=== PATIENT | female | born 1970 | race Two or more races ===

== ENCOUNTER 2019-12-24 14:52 | Emergency (ER) | payer MEDICAID ==
[~2019-12-24] VITALS: Ht 157.5 cm; Wt 82.0 kg
[2019-12-24 16:42] LABS: BILIRUBIN,URINE NEG (NEG); CLARITY,URINE HAZY; COLOR,URINE AMBER; GLUCOSE,URINE NEG (NEG); NITRITE,URINE NEG (NEG); RBC,URINE 0 /HPF (0-2); UROBILINOGEN,URINE 0.2 mg/dL (0.2 mg/dL)
[2019-12-24 16:43] LABS: BACTERIA,URINE FEW /HPF (0-FEW); WBC,URINE 0 /HPF (0-4)
[2019-12-24] MEDS ORDERED: IOHEXOL 300 MG/ML 75 ML VIAL. IV ONE (17:00)
[2019-12-24 17:31] LABS: BASO % 1 % (0-3); EOS # 0.2 x10^3/uL (0.0-0.7); EOS % 3 % (0-3); HEMATOCRIT 39.1 % (36.0-47.0); HEMOGLOBIN 13.1 g/dL (12.0-15.5); LYMPH # 2.1 x10^3/uL (1.0-4.8); LYMPH % 29 % (24-48); MEAN CORPUSCULAR HEMOGLOBIN 28 pg (25-35); MEAN CORPUSCULAR HGB CONC 34 g/dL (31-37); MEAN CORPUSCULAR VOLUME 84 fL (79-100); MONO # 0.4 x10^3/uL (0.0-1.1); MONO % 6 % (0-9); NEUT # 4.5 x10^3uL (1.8-7.7); NEUT % 62 % (31-73); PLATELET COUNT 289 x10^3/uL (140-400); RED BLOOD COUNT 4.68 x10^6/uL (3.50-5.40); RED CELL DISTRIBUTION WIDTH 14.7 % (11.5-14.5); WHITE BLOOD COUNT 7.2 x10^3/uL (4.0-11.0)
[2019-12-24 17:32] LABS: CALCIUM 9.1 mg/dL (8.5-10.1); CREATININE 0.7 mg/dL (0.6-1.0); GFR 89.3; POTASSIUM 3.9 mmol/L (3.5-5.1)
[2019-12-24 17:38] LABS: ALBUMIN 3.4 g/dL (3.4-5.0); ALBUMIN/GLOBULIN RATIO 0.8 (1.0-1.7); TOTAL BILIRUBIN 0.2 mg/dL (0.2-1.0); TOTAL PROTEIN 7.7 g/dL (6.4-8.2)
--- NOTE | 2019-12-24 17:52 | RAD ---
CT abdomen pelvis with contrast dated 12/24/2019. No comparison available. CLINICAL INDICATION: Abdominal pain. TECHNIQUE: Contiguous axial imaging the abdomen pelvis performed after the intravenous and demonstration of 75 cc Omnipaque 300. One or more of the following individualized dose reduction techniques were utilized for this examination: 1. Automated exposure control 2. Adjustment of the mA and/or kV according to patient size 3. Use of iterative reconstruction technique. FINDINGS: Limited images of lung bases are clear. Heart size within normal limits. No pleural or pericardial effusion. Liver is of diffuse low density compatible with fatty infiltration. No apparent mass. Biliary tree normal in caliber. The gallbladder is surgically absent. Spleen is normal in size. Fatty replacement of the pancreas. Adrenal glands and kidneys are unremarkable. No hydronephrosis. Unopacified GI tract normal in caliber. There is a focal zone of wall thickening and pericolonic inflammatory stranding at the descending colon/sigmoid with scattered diverticula in the region. No localized perforation or abscess. The appendix is normal in caliber. There is a prominent supraumbilical ventral hernia that contains portions of large and small bowel. No evidence of bowel obstruction. No adenopathy or ascites. Images of pelvis show nondistended urinary bladder. The uterus is surgically absent. No free fluid or pelvic lymphadenopathy. Bone windows show no acute findings. Multilevel spondylosis. IMPRESSION: 1. Findings consistent with acute sigmoid diverticulitis. No localized perforation or abscess at this time. 2. Prominent supraumbilical ventral hernia containing loops of large and small bowel. No evidence of bowel obstruction. 3. Fatty infiltration of the liver. 4. Status post cholecystectomy and hysterectomy. Electronically signed by: Max Kaiser MD (12/24/2019 5:50 PM) [id number]
[2019-12-24] MEDS ORDERED: CIPROFLOXACIN HCL 500 MG TABLET PO ONE (18:00)
[2019-12-24] MEDS ORDERED: metroNIDAZOLE 500 MG TABLET PO ONE (18:00)
[2019-12-24] MEDS ORDERED: CIPR500T PO (18:02)
[2019-12-24] MEDS ORDERED: METR500T PO (18:02)
--- NOTE | 2019-12-24 18:03 | PHYS DOC ---
Past History Past Medical History: Arthritis Past Surgical History: Cholecystectomy, Hysterectomy, Other Additional Past Surgical Histo: bilat knee surgeries, bunionectomy, multiple hernia repairs. Alcohol Use: None Adult General Chief Complaint Chief Complaint: FLANK PAIN HPI HPI Patient is a 49-year-old female who presents with suprapubic pain and urinary symptoms. Onset was 24 hours ago without any known inciting event and/or trauma. Nothing known makes better or worse. Pain is dull to suprapubic region without radiation with associated dysuria on urination. No lashell hematuria, fever, COVID-19 contact, chest pain or shortness of breath. Patient has history of diverticulitis in the past, admits mild left lower quadrant pain in addition to urinary symptoms. Unsure if this feels like previous episodes Review of Systems Review of Systems Fourteen body systems of review of systems have been reviewed. See HPI for pertinent positives and negative responses, other jones all other systems are negative, non-pertinent or non-contributory Current Medications Current Medications Current Medications Medications (Trade) Dose Ordered Sig/Thea Start Time Stop Time Status Last Admin Dose Admin Iohexol (Omnipaque 300 Mg/ml) 75 ml 1X ONCE 12/24/19 17:00 12/24/19 17:01 DC 12/24/19 17:35 75 ML Allergies Allergies Allergies Coded Allergies Type Severity Reaction Last Updated Verified No Known Drug Allergies 12/24/19 No Physical Exam Physical Exam Constitutional: Well developed, well nourished, no acute distress, non-toxic appearance. HENT: Normocephalic, atraumatic, bilateral external ears normal, oropharynx moist, no oral exudates, nose normal. Eyes: PERRLA, EOMI, conjunctiva normal, no discharge. Neck: Normal range of motion, no tenderness, supple, no stridor. Cardiovascular: Heart rate regular, sinus rhythm, no murmurs rubs or gallops Lungs & Thorax: Bilateral breath sounds clear to auscultation Abdomen: Bowel sounds normal, soft, mild suprapubic tenderness and focal left lower quadrant tenderness without any guarding or rebound, no masses, no pulsatile masses. Nonsurgical abdomen, no peritoneal signs Skin: Warm, dry, no erythema, no rash. Back: No tenderness, no CVA tenderness. Extremities: No tenderness, no cyanosis, no clubbing, ROM intact, no edema. Neurologic: Alert and oriented X 3, grossly normal motor & sensory function, no focal deficits noted. Psychologic: Affect normal, judgement normal, mood normal. Current Patient Data Vital Signs Vital Signs Date Time Temp Pulse Resp B/P (MAP) Pulse Ox O2 Delivery O2 Flow Rate FiO2 12/24/19 15:10 98.1 82 16 150/53 (85) 97 Lab Results Laboratory Tests Test 12/24/19 15:40 12/24/19 17:00 Urine Collection Type Unknown Urine Color Tammy Urine Clarity Hazy Urine pH 6.0 Urine Specific [place] >=1.030 Urine Protein 30 mg/dl (NEG-TRACE) Urine Glucose (UA) Neg mg/dL (NEG) Urine Ketones (Stick) 15 mg/dL (NEG) Urine Blood Neg (NEG) Urine Nitrite Neg (NEG) Urine Bilirubin Neg (NEG) Urine Urobilinogen Dipstick 0.2 mg/dL (0.2 mg/dL) Urine Leukocyte Esterase Neg (NEG) Urine RBC 0 /HPF (0-2) Urine WBC 0 /HPF (0-4) Urine Squamous Epithelial Cells None /LPF Urine Bacteria Few /HPF (0-FEW) White Blood Count 7.2 x10^3/uL (4.0-11.0) Red Blood Count 4.68 x10^6/uL (3.50-5.40) Hemoglobin 13.1 g/dL (12.0-15.5) Hematocrit 39.1 % (36.0-47.0) Mean Corpuscular Volume 84 fL (79-100) Mean Corpuscular Hemoglobin 28 pg (25-35) Mean Corpuscular Hemoglobin Concent 34 g/dL (31-37) Red Cell Distribution Width 14.7 % (11.5-14.5) H Platelet Count 289 x10^3/uL (140-400) Neutrophils (%) (Auto) 62 % (31-73) Lymphocytes (%) (Auto) 29 % (24-48) Monocytes (%) (Auto) 6 % (0-9) Eosinophils (%) (Auto) 3 % (0-3) Basophils (%) (Auto) 1 % (0-3) Neutrophils # (Auto) 4.5 x10^3uL (1.8-7.7) Lymphocytes # (Auto) 2.1 x10^3/uL (1.0-4.8) Monocytes # (Auto) 0.4 x10^3/uL (0.0-1.1) Eosinophils # (Auto) 0.2 x10^3/uL (0.0-0.7) Basophils # (Auto) 0.0 x10^3/uL (0.0-0.2) Sodium Level 141 mmol/L (136-145) Potassium Level 3.9 mmol/L (3.5-5.1) Chloride Level 105 mmol/L (98-107) Carbon Dioxide Level 26 mmol/L (21-32) Anion Gap 10 (6-14) Blood Urea Nitrogen 12 mg/dL (7-20) Creatinine 0.7 mg/dL (0.6-1.0) Estimated GFR (Cockcroft-Gault) 89.3 BUN/Creatinine Ratio 17 (6-20) Glucose Level 147 mg/dL (70-99) H Calcium Level 9.1 mg/dL (8.5-10.1) Total Bilirubin 0.2 mg/dL (0.2-1.0) Aspartate Amino Transferase (AST) 25 U/L (15-37) Alanine Aminotransferase (ALT) 19 U/L (14-59) Alkaline Phosphatase 111 U/L (46-116) Total Protein 7.7 g/dL (6.4-8.2) Albumin 3.4 g/dL (3.4-5.0) Albumin/Globulin Ratio 0.8 (1.0-1.7) L EKG EKG [] Radiology/Procedures Radiology/Procedures PROCEDURE: CT ABD PELV W/ IV CONTRST ONLY CT abdomen pelvis with contrast dated 12/24/2019. No comparison available. CLINICAL INDICATION: Abdominal pain. TECHNIQUE: Contiguous axial imaging the abdomen pelvis performed after the intravenous and demonstration of 75 cc Omnipaque 300. One or more of the following individualized dose reduction techniques were utilized for this examination: 1. Automated exposure control 2. Adjustment of the mA and/or kV according to patient size 3. Use of iterative reconstruction technique. FINDINGS: Limited images of lung bases are clear. Heart size within normal limits. No pleural or pericardial effusion. Liver is of diffuse low density compatible with fatty infiltration. No apparent mass. Biliary tree normal in caliber. The gallbladder is surgically absent. Spleen is normal in size. Fatty replacement of the pancreas. Adrenal glands and kidneys are unremarkable. No hydronephrosis. Unopacified GI tract normal in caliber. There is a focal zone of wall thickening and pericolonic inflammatory stranding at the descending colon/sigmoid with scattered diverticula in the region. No localized perforation or abscess. The appendix is normal in caliber. There is a prominent supraumbilical ventral hernia that contains portions of large and small bowel. No evidence of bowel obstruction. No adenopathy or ascites. Images of pelvis show nondistended urinary bladder. The uterus is surgically absent. No free fluid or pelvic lymphadenopathy. Bone windows show no acute findings. Multilevel spondylosis. IMPRESSION: 1. Findings consistent with acute sigmoid diverticulitis. No localized perforation or abscess at this time. 2. Prominent supraumbilical ventral hernia containing loops of large and small bowel. No evidence of bowel obstruction. 3. Fatty infiltration of the liver. 4. Status post cholecystectomy and hysterectomy. Electronically signed by: Max Kaiser MD (12/24/2019 5:50 PM) [id number] Heart Score HEART Score for Chest Pain: HEART Score for Chest Pain Response (Comments) Value History Slighlty/Non-Suspicious 0 Age >45 - < 65 1 Risk Factors >3 Risk Factors or Hx CAD 2 Total 3 Risk Factors: Risk Factors: DM, Current or recent (<one month) smoker, HTN, HLP, family history of CAD, obesity. Risk Scores: Risk Factors: DM, Current or recent (<one month) smoker, HTN, HLP, family history of CAD, obesity. Course & Med Decision Making Course & Med Decision Making Pertinent Labs and Imaging studies reviewed. (See chart for details) Discussed most likely diagnosis of diverticulitis. Discussed need for antibiotic use and close outpatient follow-up, patient educated extensively on ciprofloxacin and Flagyl medications for which she received a prescription for today. Patient amenable to plan of care Strict return precautions discussed with good understanding by patient, all questions and concerns addressed prior to ER departure in stable condition [place] Disclaimer Dragon Disclaimer This electronic medical record was generated, in whole or in part, using a voice recognition dictation system. Departure Departure: Impression: Primary Impression: Sigmoid diverticulitis Disposition: 01 DC HOME SELF CARE/HOMELESS Condition: STABLE Referrals: ROBLES MAC (PCP) Patient Instructions: Diverticulitis Scripts Metronidazole (FLAGYL) 500 Mg Tablet 500 MG PO TID for DIVERTICULITIS for 10 Days, #30 TAB Prov: JOHN FERGUSON DO 12/24/19 Ciprofloxacin Hcl (CIPROFLOXACIN HCL) 500 Mg Tablet 1 TAB PO BID for DIVERTICULITIS, #20 TAB Prov: JOHN FERGUSON DO 12/24/19 JOHN FERGUSON DO Dec 24, 2019 18:03
[2019-12-24 18:32] VITALS: BP 122/72
== END 2019-12-24 18:32 | disposition home or self-care (01) ==
LOC: ER 14:52
DX: K57.32 Diverticulitis of large intestine without perforation or abscess without bleeding (principal); M19.90 Unspecified osteoarthritis, unspecified site; Z90.49 Acquired absence of other specified parts of digestive tract; Z90.710 Acquired absence of both cervix and uterus
CPT/HCPCS: 36415; 74177; 80053; 81001; 85025; 99285; Q9967

== ENCOUNTER 2020-01-10 16:19 | Emergency (ER) | payer MEDICAID ==
[~2020-01-10] VITALS: Ht 160 cm; Wt 107.3 kg
[~2020-01-10 16:19] MED LIST: CIPR500T PO; METR500T PO
[2020-01-10 17:59] LABS: BILIRUBIN,URINE NEG (NEG); CLARITY,URINE CLEAR; COLOR,URINE YELLOW; GLUCOSE,URINE NEG (NEG)
[2020-01-10 18:00] LABS: BACTERIA,URINE 0 /HPF (0-FEW); NITRITE,URINE NEG (NEG); RBC,URINE RARE /HPF (0-2); SQUAMOUS EPITHELIAL CELL,UR MOD /LPF; UROBILINOGEN,URINE 0.2 mg/dL (0.2 mg/dL); WBC,URINE RARE /HPF (0-4)
[2020-01-10 19:24] LABS: BASO # 0.1 x10^3/uL (0.0-0.2); BASO % 1 % (0-3); EOS # 0.2 x10^3/uL (0.0-0.7); EOS % 2 % (0-3); HEMATOCRIT 39.8 % (36.0-47.0); LYMPH # 2.4 x10^3/uL (1.0-4.8); LYMPH % 23 % (24-48); MEAN CORPUSCULAR HEMOGLOBIN 27 pg (25-35); MEAN CORPUSCULAR HGB CONC 33 g/dL (31-37); MEAN CORPUSCULAR VOLUME 84 fL (79-100); MONO # 0.6 x10^3/uL (0.0-1.1); MONO % 5 % (0-9); NEUT # 7.2 x10^3uL (1.8-7.7); NEUT % 68 % (31-73); PLATELET COUNT 310 x10^3/uL (140-400); RED BLOOD COUNT 4.73 x10^6/uL (3.50-5.40); RED CELL DISTRIBUTION WIDTH 14.7 % (11.5-14.5); WHITE BLOOD COUNT 10.5 x10^3/uL (4.0-11.0)
--- NOTE | 2020-01-10 19:36 | PHYS DOC ---
Past History Past Medical History: Arthritis, Diverticulitis Past Surgical History: Cholecystectomy, Hysterectomy, Other Additional Past Surgical Histo: bilat knee surgeries, bunionectomy, multiple hernia repairs. Alcohol Use: None Adult General Chief Complaint Chief Complaint: ABDOMINAL PAIN [facility] HPI Patient is a 49-year-old female who presents to the emergency room complaining of left flank pain that radiates into her left lower abdomen. She states that i t feels somewhat similar to when she has had diverticulitis. She has had loose stools since that but they have not changed when this pain started. She has had this pain since Thursday night. She denies any urinary symptoms including hematuria, dysuria, urinary frequency. She has not had any fevers, chills, sweats, shortness of breath, cough, URI symptoms, chest pain. Review of Systems Review of Systems Complete ROS is negative unless otherwise documented in [facility] Allergies Allergies Allergies Coded Allergies Type Severity Reaction Last Updated Verified No Known Drug Allergies 12/24/19 No Physical Exam Physical Exam General: Awake, alert, NAD. Well Nourished, well hydrated. Cooperative HEENT: Atraumatic, EOMI, PERRL, airway patent, moist oral mucosa Neck: Supple, trachea midline Respiratory: CTA bilaterally, normal effort, no wheezing/crackles CV: RRR, no murmur, cap refill <2 GI: Soft, nondistended, L sided abd tenderness, no masses MSK: No obvious deformities Skin: Warm, dry, intact Neuro: A&O x3, speech NL, sensory and motor grossly intact, no focal deficits Psych: Normal affect, normal mood, not suicidal or homicidal Current Patient Data Vital Signs Vital Signs Date Time Temp Pulse Resp B/P (MAP) Pulse Ox O2 Delivery O2 Flow Rate FiO2 01/10/20 17:20 97.9 73 20 155/89 (111) 97 Room Air Lab Results Laboratory Tests Test 01/10/20 17:28 01/10/20 18:50 Urine Collection Type Unknown Urine Color Yellow Urine Clarity Clear Urine pH 7.0 Urine Specific [place] >=1.030 Urine Protein Neg (NEG-TRACE) Urine Glucose (UA) Neg mg/dL (NEG) Urine Ketones (Stick) Neg mg/dL (NEG) Urine Blood Neg (NEG) Urine Nitrite Neg (NEG) Urine Bilirubin Neg (NEG) Urine Urobilinogen Dipstick 0.2 mg/dL (0.2 mg/dL) Urine Leukocyte Esterase Neg (NEG) Urine RBC Rare /HPF (0-2) Urine WBC Rare /HPF (0-4) Urine Squamous Epithelial Cells Mod /LPF Urine Bacteria 0 /HPF (0-FEW) Urine Test Pending White Blood Count 10.5 x10^3/uL (4.0-11.0) Red Blood Count 4.73 x10^6/uL (3.50-5.40) Hemoglobin 13.0 g/dL (12.0-15.5) Hematocrit 39.8 % (36.0-47.0) Mean Corpuscular Volume 84 fL (79-100) Mean Corpuscular Hemoglobin 27 pg (25-35) Mean Corpuscular Hemoglobin Concent 33 g/dL (31-37) Red Cell Distribution Width 14.7 % (11.5-14.5) H Platelet Count 310 x10^3/uL (140-400) Neutrophils (%) (Auto) 68 % (31-73) Lymphocytes (%) (Auto) 23 % (24-48) L Monocytes (%) (Auto) 5 % (0-9) Eosinophils (%) (Auto) 2 % (0-3) Basophils (%) (Auto) 1 % (0-3) Neutrophils # (Auto) 7.2 x10^3uL (1.8-7.7) Lymphocytes # (Auto) 2.4 x10^3/uL (1.0-4.8) Monocytes # (Auto) 0.6 x10^3/uL (0.0-1.1) Eosinophils # (Auto) 0.2 x10^3/uL (0.0-0.7) Basophils # (Auto) 0.1 x10^3/uL (0.0-0.2) EKG EKG [] Radiology/Procedures Radiology/Procedures [] Heart Score Risk Factors: Risk Factors: DM, Current or recent (<one month) smoker, HTN, HLP, family history of CAD, obesity. Risk Scores: Risk Factors: DM, Current or recent (<one month) smoker, HTN, HLP, family history of CAD, obesity. Course & Med Decision Making Course & Med Decision Making Pertinent Labs and Imaging studies reviewed. (See chart for details) Patient is a 49-year-old female presents to the emergency room complaining of left-sided abdominal and flank pain. Abdominal labs and urinary labs were ordered. CT abdomen pelvis without contrast was ordered to evaluate for diverticulitis or kidney stone. Patient was given morphine and fluids. CT shows diverticulitis. Will start on Augmentin. Patient's test results and vitals while in the ED were fully reviewed and discussed with the patient. Patient is stable and at this time does not need admission to the hospital. We have discussed strict return precautions and the importance of following up with their Primary Care Physician. Patient stated understanding and was given an opportunity to ask any questions. Patient is in agreement with plan. Dragon Disclaimer Dragon Disclaimer This electronic medical record was generated, in whole or in part, using a voice recognition dictation system. Departure Departure: Impression: Primary Impression: Abdominal pain Additional Impression: Diverticulitis Disposition: 01 DC HOME SELF CARE/HOMELESS Condition: STABLE Referrals: ROLBES MAC (PCP) Patient Instructions: Diverticulitis Scripts Oxycodone Hcl/Acetaminophen (PERCOCET 5-325 MG TABLET ) 1 Each Tablet 1 TAB PO PRN TID PRN for PAIN MDD 3 Tablet(s) for 5 Days, #6 TAB 0 Refills Prov: GILDARDO MEDRANO MD 01/10/20 Amoxicillin/Potassium Clav (AUGMENTIN 875-125 TABLET) 1 Each Tablet 1 TAB PO BID for infx for 10 Days, #20 TAB 0 Refills Prov: GILDARDO MEDRANO MD 01/10/20 Problem Qualifiers GILDARDO MEDRANO MD Jan 10, 2020 19:36
[2020-01-10 19:45] LABS: CREATININE 0.7 mg/dL (0.6-1.0); GFR 89.3
[2020-01-10 19:46] LABS: U PREG PATIENT NEGATIVE (NEG)
--- NOTE | 2020-01-10 20:07 | RAD ---
Exam: CT of abdomen and pelvis without contrast INDICATION: Left flank pain TECHNIQUE: Sequential axial images through the abdomen and pelvis obtained without IV contrast. Sagittal and coronal reformatted images were reconstructed from the axial data and reviewed. Comparisons: 12/24/2019 FINDINGS: Heart size is normal. No pericardial effusion visualized lung bases are clear. Evaluation of solid organs is limited secondary to noncontrast technique. Diffuse hepatic steatosis. Spleen, pancreas and adrenals are unremarkable. Gallbladder surgically absent. No perinephric inflammation or hydronephrosis. No renal or ureteral calculi are identified. Bladder is distended and not well evaluated. Uterus is absent. No abnormal adnexal mass. There is wall thickening and fat stranding surrounding the sigmoid colon.. No evidence for perforation or adjacent abscess. There is a ventral hernia which contains a short segment of transverse colon with several loops of small bowel. No obstruction. No free intra-abdominal air or fluid. Abdominal aorta has a normal course and caliber. No enlarged intra-abdominal lymph nodes are identified. No suspicious osseous lesions or acute fractures. IMPRESSION: 1. Fat stranding at the sigmoid colon favored represent colitis. May be infectious or inflammatory in etiology. This is an area of diverticulosis and diverticulitis possible. No evidence for perforation or adjacent abscess. 2. Diffuse hepatic steatosis Exposure: One or more of the following in the visualized dose reduction techniques were utilized for this examination: 1. Automated exposure control 2. Adjustment of the MA and/or KV according to patient size 3. Use of iterative of reconstructive technique Electronically signed by: Kami Hutchinson MD (01/10/2020 8:05 PM) [facility]
[2020-01-10 20:21] VITALS: BP 152/86
[2020-01-10] MEDS ORDERED: OXYC1TAB15 PO (20:29)
[2020-01-10] MEDS ORDERED: AMOX1TAB61 PO (20:29)
[2020-01-10] MEDS ORDERED: MORPHINE SULFATE 4 MG/ML DISP.SYRIN. IV ONE (20:45)
== END 2020-01-10 20:44 | disposition home or self-care (01) ==
LOC: ER 16:19
DX: K57.92 Diverticulitis of intestine, part unspecified, without perforation or abscess without bleeding (principal); M19.90 Unspecified osteoarthritis, unspecified site; Z90.49 Acquired absence of other specified parts of digestive tract; Z90.710 Acquired absence of both cervix and uterus
CPT/HCPCS: 36415; 74176; 80048; 81001; 81025; 85025; 99285

== ENCOUNTER 2020-01-23 01:36 | Emergency (ER) | payer MEDICAID ==
[~2020-01-23] VITALS: Ht 160 cm; Wt 105.0 kg
[~2020-01-23 01:36] MED LIST changes: +AMOX1TAB61 PO; +OXYC1TAB15 PO
--- NOTE | 2020-01-23 02:08 | PHYS DOC ---
Past History Past Medical History: Arthritis, Diverticulitis Past Surgical History: Cholecystectomy, Hysterectomy, Other Additional Past Surgical Histo: bilat knee surgeries, bunionectomy, multiple hernia repairs. Alcohol Use: None Adult General Chief Complaint Chief Complaint: ABDOMINAL PAIN [facility] HPI Patient is a 49-year-old female who presents for abdominal pain and hematochezia. Reports having 24-hour history of vague abdominal pain focal to suprapubic and bilateral lower quadrants. Subsequently had x2 episodes of painless hematochezia within past 4 hours prior to arrival. Patient documented these episodes, there was lashell red blood in stool that was bright red in addition to streaking in stool and on toilet paper. Patient otherwise denies any changes in stool production and/or frequency, no history of constipation, typically goes twice daily and reports being regular and passing flatulence without issue. Patient admits history of colonoscopy that was unremarkable, has prior history of diverticulosis. Patient reports similar episode of hematochezia during last bout of diverticulitis less than 4 weeks ago for which she took and completed round of Augmentin. She has no history of abdominal surgeries, no fever, no COVID-19 contact Review of Systems Review of Systems Fourteen body systems of review of systems have been reviewed. See HPI for pertinent positives and negative responses, other jones all other systems are negative, non-pertinent or non-contributory Allergies Allergies Allergies Coded Allergies Type Severity Reaction Last Updated Verified No Known Drug Allergies 12/24/19 No Physical Exam Physical Exam Constitutional: Well developed, well nourished, no acute distress, non-toxic appearance. HENT: Normocephalic, atraumatic, bilateral external ears normal, oropharynx moist, no oral exudates, nose normal. Eyes: PERRLA, EOMI, conjunctiva normal, no discharge. Neck: Normal range of motion, no tenderness, supple, no stridor. Cardiovascular: Heart rate regular, sinus rhythm, no murmurs rubs or gallops Lungs & Thorax: Bilateral breath sounds clear to auscultation Abdomen: Bowel sounds normal, soft, mild suprapubic tenderness without guarding or rebound, no masses, no pulsatile masses. Nonsurgical abdomen, no peritoneal signs. Rectal exam performed with numerous external hemorrhoids that were nonthrombosed and nonbleeding readily apparent, anal sphincter intact, no obvious palpable abnormalities within rectal vault Skin: Warm, dry, no erythema, no rash. Back: No tenderness, no CVA tenderness. Extremities: No tenderness, no cyanosis, no clubbing, ROM intact, no edema. Neurologic: Alert and oriented X 3, grossly normal motor & sensory function, no focal deficits noted. Psychologic: Affect normal, judgement normal, mood normal. Current Patient Data Vital Signs Vital Signs Date Time Temp Pulse Resp B/P (MAP) Pulse Ox O2 Delivery O2 Flow Rate FiO2 01/23/20 02:24 78 20 138/82 (100) 98 Room Air 01/23/20 01:36 98.6 Lab Results Laboratory Tests Test 01/23/20 01:35 01/23/20 01:50 Urine Collection Type Unknown Urine Color Yellow Urine Clarity Hazy Urine pH 6.5 Urine Specific [place] 1.025 Urine Protein Trace (NEG-TRACE) Urine Glucose (UA) Neg mg/dL (NEG) Urine Ketones (Stick) Trace mg/dL (NEG) Urine Blood Trace (NEG) Urine Nitrite Neg (NEG) Urine Bilirubin Neg (NEG) Urine Urobilinogen Dipstick 1.0 mg/dL (0.2 mg/dL) Urine Leukocyte Esterase Small (NEG) Urine RBC 0 /HPF (0-2) Urine WBC 5-10 /HPF (0-4) Urine Squamous Epithelial Cells Mod /LPF Urine Bacteria Few /HPF (0-FEW) Urine Test Negative (NEG) White Blood Count 7.3 x10^3/uL (4.0-11.0) Red Blood Count 4.57 x10^6/uL (3.50-5.40) Hemoglobin 12.5 g/dL (12.0-15.5) Hematocrit 38.2 % (36.0-47.0) Mean Corpuscular Volume 84 fL (79-100) Mean Corpuscular Hemoglobin 27 pg (25-35) Mean Corpuscular Hemoglobin Concent 33 g/dL (31-37) Red Cell Distribution Width 14.4 % (11.5-14.5) Platelet Count 274 x10^3/uL (140-400) Neutrophils (%) (Auto) 53 % (31-73) Lymphocytes (%) (Auto) 36 % (24-48) Monocytes (%) (Auto) 8 % (0-9) Eosinophils (%) (Auto) 3 % (0-3) Basophils (%) (Auto) 1 % (0-3) Neutrophils # (Auto) 3.8 x10^3uL (1.8-7.7) Lymphocytes # (Auto) 2.6 x10^3/uL (1.0-4.8) Monocytes # (Auto) 0.6 x10^3/uL (0.0-1.1) Eosinophils # (Auto) 0.2 x10^3/uL (0.0-0.7) Basophils # (Auto) 0.1 x10^3/uL (0.0-0.2) Prothrombin Time 9.9 SEC (9.4-11.4) Prothromb Time International Ratio 1.0 (0.9-1.1) Activated Partial Thromboplast Time 26 SEC (23-33) Sodium Level 137 mmol/L (136-145) Potassium Level 3.5 mmol/L (3.5-5.1) Chloride Level 102 mmol/L (98-107) Carbon Dioxide Level 26 mmol/L (21-32) Anion Gap 9 (6-14) Blood Urea Nitrogen 11 mg/dL (7-20) Creatinine 0.8 mg/dL (0.6-1.0) Estimated GFR (Cockcroft-Gault) 76.6 BUN/Creatinine Ratio 14 (6-20) Glucose Level 138 mg/dL (70-99) Calcium Level 8.5 mg/dL (8.5-10.1) Total Bilirubin 0.4 mg/dL (0.2-1.0) Aspartate Amino Transf (AST/SGOT) 19 U/L (15-37) Alanine Aminotransferase (ALT/SGPT) 16 U/L (14-59) Alkaline Phosphatase 104 U/L (46-116) Total Protein 7.2 g/dL (6.4-8.2) Albumin 3.3 g/dL (3.4-5.0) Albumin/Globulin Ratio 0.8 (1.0-1.7) EKG EKG EKG ordered and interpreted by myself at 0215 hrs. as sinus rhythm at 73 bpm, unremarkable intervals, no axis deviation, no acute ischemic findings, no STEMI Radiology/Procedures Radiology/Procedures PROCEDURE: CT ABD PELV W/ IV CONTRST ONLY EXAMINATION: CT ABD PELV W/ IV CONTRST ONLY (CT ABDOMEN/PELVIS WITH IV CONTRAST) CLINICAL HISTORY: Left lower quadrant pain, hematochezia TECHNIQUE: CT of the abdomen and pelvis was performed using standard technique, scanning from just above the dome of the diaphragm to the symphysis pubis following administration of intravenous contrast. CT Dose Reduction Employed: One or more of the following individualized dose reduction techniques were utilized for this examination: 1. Automated exposure control 2. Adjustment of the mA and/or kV according to patient size 3. Use of iterative reconstruction technique. COMPARISON: 01/10/2020 FINDINGS: Lower thorax: Unremarkable. Liver: Hepatic steatosis. Biliary: No bile duct dilation. Cholecystectomy. Spleen: No mass. No splenomegaly. Pancreas: No mass or duct dilation. Adrenals: No mass. Kidneys: No mass, calculus or hydronephrosis. GI tract: Colonic diverticulosis with redemonstration of sigmoid wall thickening and pericolonic inflammatory stranding/fluid, essentially unchanged from prior study. No dilated bowel. Normal appendix. Lymph nodes: No abdominal or pelvic lymphadenopathy. Mesentery/Peritoneum: No ascites or mass. Vasculature: The celiac axis and SMA are patent. The portal vein and branches, splenic vein, SMV, and hepatic veins are patent. No abdominal aortic or iliac artery aneurysm. Pelvis: Mildly filled urinary bladder. Bones/Soft Tissues: Thoracolumbar degenerative changes. Stable ventral hernia containing a portion of the transverse colon and several loops of nonobstructed small bowel. IMPRESSION: Essentially unchanged sigmoid diverticulitis/colitis. Electronically signed by: Naif Monson DO (01/23/2020 5:37 AM) [facility] Heart Score HEART Score for Chest Pain: HEART Score for Chest Pain Response (Comments) Value History Slighlty/Non-Suspicious 0 ECG Normal 0 Age >45 - < 65 1 Risk Factors 1 or 2 Risk Factors 1 Total 2 Risk Factors: Risk Factors: DM, Current or recent (<one month) smoker, HTN, HLP, family history of CAD, obesity. Risk Scores: Risk Factors: DM, Current or recent (<one month) smoker, HTN, HLP, family history of CAD, obesity. Course & Med Decision Making Course & Med Decision Making Pertinent Labs and Imaging studies reviewed. (See chart for details) Discussed most likely diagnosis of hematochezia likely due to diverticulosis versus hemorrhoids versus other. Extensive ER work-up nonconcerning for any emergent and/or surgical findings, Sammy-Blatchford bleeding score 0. Patient afebrile, hemodynamically stable, asymptomatic, but does have ongoing evidence of diverticulitis requiring antibiotics. Patient took Cipro and Flagyl while in ER and tolerated these well, she was observed and ultimately joint decision made for discharge home. She has good access to PCP, I advised patient to call first thing on discharge schedule outpatient follow-up in upcoming week for repeat examination. 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 Strict return precautions were discussed with good understanding by patient, all questions and concerns addressed prior to ER departure in stable condition Dragon Disclaimer Dragon Disclaimer This electronic medical record was generated, in whole or in part, using a voice recognition dictation system. Departure Departure: Impression: Primary Impression: Diverticulitis Additional Impressions: Hematochezia External hemorrhoids Disposition: DC HOME SELF CARE/HOMELESS Condition: STABLE Referrals: ROBLES MAC (PCP) Patient Instructions: Diverticulitis, Hemorrhoids, Rectal Bleeding Additional Instructions: You have been evaluated in the Emergency Department today for hematochezia. Your evaluation was not suggestive of any emergent condition requiring medical intervention at this time. However, some problems make take more time to appear. Therefore, it is important for you to watch for any new symptoms or worsening of your current condition. Please continue supportive care for your external hemorrhoids. Please take prescribed antibiotics to completion for your diverticulitis. Please monitor your rectal bleeding and if symptoms progress/worsen please do not hesitate to come back if you are feeling symptomatic for intervention You are pending outpatient GI referral at this time, I would advise discussing y our recent ER visit today with your primary care physician after ER departure in efforts to accelerate referral process. You will likely need repeat colonoscopy after current infectious process has resolved Return to the Emergency Department if you experience worsening pain, lightheadedness or dizziness, falls, persistent fevers greater than 100.4, recurrent vomiting, blood in vomit, continuous blood in stool, dark tarry stool, chest pain, difficulty breathing, or any other concerning symptoms. Scripts Ciprofloxacin Hcl (CIPROFLOXACIN HCL) 500 Mg Tablet 1 TAB PO BID for DIVERTICULITIS, #14 TAB Prov: JOHN FERGUSON DO 01/23/20 Metronidazole (FLAGYL) 500 Mg Tablet 1 TAB PO BID for DIVERTICULITIS, #14 TAB Prov: JOHN FERGUSON DO 01/23/20 Problem Qualifiers JOHN FERGUSON DO Jan 23, 2020 02:08
[2020-01-23 02:26] LABS: BASO # 0.1 x10^3/uL (0.0-0.2); BASO % 1 % (0-3); EOS # 0.2 x10^3/uL (0.0-0.7); EOS % 3 % (0-3); HEMATOCRIT 38.2 % (36.0-47.0); HEMOGLOBIN 12.5 g/dL (12.0-15.5); LYMPH # 2.6 x10^3/uL (1.0-4.8); LYMPH % 36 % (24-48); MEAN CORPUSCULAR HEMOGLOBIN 27 pg (25-35); MEAN CORPUSCULAR HGB CONC 33 g/dL (31-37); MEAN CORPUSCULAR VOLUME 84 fL (79-100); MONO # 0.6 x10^3/uL (0.0-1.1); MONO % 8 % (0-9); NEUT # 3.8 x10^3uL (1.8-7.7); NEUT % 53 % (31-73); PLATELET COUNT 274 x10^3/uL (140-400); RED BLOOD COUNT 4.57 x10^6/uL (3.50-5.40); RED CELL DISTRIBUTION WIDTH 14.4 % (11.5-14.5); WHITE BLOOD COUNT 7.3 x10^3/uL (4.0-11.0)
[2020-01-23] MEDS ORDERED: PANTOPRAZOLE IV 40 MG VIAL. IVP ONE (02:30)
[2020-01-23] MEDS ORDERED: CONTRAST GIVEN. MC PRN (02:30)
[2020-01-23 02:42] LABS: CALCIUM 8.5 mg/dL (8.5-10.1); CREATININE 0.8 mg/dL (0.6-1.0); GFR 76.6; POTASSIUM 3.5 mmol/L (3.5-5.1)
[2020-01-23 02:45] LABS: BACTERIA,URINE FEW /HPF (0-FEW); BILIRUBIN,URINE NEG (NEG); CLARITY,URINE HAZY; COLOR,URINE YELLOW; GLUCOSE,URINE NEG (NEG); NITRITE,URINE NEG (NEG); RBC,URINE 0 /HPF (0-2); SQUAMOUS EPITHELIAL CELL,UR MOD /LPF
[2020-01-23 02:48] LABS: ALBUMIN 3.3 g/dL (3.4-5.0); ALBUMIN/GLOBULIN RATIO 0.8 (1.0-1.7); TOTAL BILIRUBIN 0.4 mg/dL (0.2-1.0); TOTAL PROTEIN 7.2 g/dL (6.4-8.2)
[2020-01-23] MEDS ORDERED: IOHEXOL 300 MG/ML 75 ML VIAL. IV ONE (03:00)
[2020-01-23 03:32] LABS: U PREG PATIENT NEGATIVE (NEG)
--- NOTE | 2020-01-23 05:38 | EKG ---
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
--- NOTE | 2020-01-23 05:40 | RAD ---
EXAMINATION: CT ABD PELV W/ IV CONTRST ONLY (CT ABDOMEN/PELVIS WITH IV CONTRAST) CLINICAL HISTORY: Left lower quadrant pain, hematochezia TECHNIQUE: CT of the abdomen and pelvis was performed using standard technique, scanning from just above the dome of the diaphragm to the symphysis pubis following administration of intravenous contrast. CT Dose Reduction Employed: One or more of the following individualized dose reduction techniques were utilized for this examination: 1. Automated exposure control 2. Adjustment of the mA and/or kV according to patient size 3. Use of iterative reconstruction technique. COMPARISON: 01/10/2020 FINDINGS: Lower thorax: Unremarkable. Liver: Hepatic steatosis. Biliary: No bile duct dilation. Cholecystectomy. Spleen: No mass. No splenomegaly. Pancreas: No mass or duct dilation. Adrenals: No mass. Kidneys: No mass, calculus or hydronephrosis. GI tract: Colonic diverticulosis with redemonstration of sigmoid wall thickening and pericolonic inflammatory stranding/fluid, essentially unchanged from prior study. No dilated bowel. Normal appendix. Lymph nodes: No abdominal or pelvic lymphadenopathy. Mesentery/Peritoneum: No ascites or mass. Vasculature: The celiac axis and SMA are patent. The portal vein and branches, splenic vein, SMV, and hepatic veins are patent. No abdominal aortic or iliac artery aneurysm. Pelvis: Mildly filled urinary bladder. Bones/Soft Tissues: Thoracolumbar degenerative changes. Stable ventral hernia containing a portion of the transverse colon and several loops of nonobstructed small bowel. IMPRESSION: Essentially unchanged sigmoid diverticulitis/colitis. Electronically signed by: Naif Monson DO (01/23/2020 5:37 AM) [facility]
[2020-01-23] MEDS ORDERED: METR500T PO (05:50)
[2020-01-23] MEDS ORDERED: CIPR500T PO (05:50)
[2020-01-23 06:00] VITALS: BP 137/85
[2020-01-23] MEDS ORDERED: CIPROFLOXACIN HCL 500 MG TABLET PO ONE (06:00)
[2020-01-23] MEDS ORDERED: metroNIDAZOLE 500 MG TABLET PO ONE (06:00)
== END 2020-01-23 06:00 | disposition home or self-care (01) ==
LOC: ER 01:36
DX: K57.92 Diverticulitis of intestine, part unspecified, without perforation or abscess without bleeding (principal); K92.1 Melena; K64.4 Residual hemorrhoidal skin tags; M19.90 Unspecified osteoarthritis, unspecified site
CPT/HCPCS: 36415; 74177; 80053; 81001; 81025; 85025; 85610; 85730; 87086; 93005; 96374; 99285; C9113; Q9967

== ENCOUNTER → 2020-05-07 | Outpatient (CLI) | payer MEDICAID ==
[~2020-05-07] MED LIST changes: -CIPR500T PO; +CIPR500T2 PO
--- NOTE | 2020-05-07 13:34 | RAD ---
EXAM: Left knee, 3 views. HISTORY: Pain. COMPARISON: None. FINDINGS: 3 views of the left knee are obtained. There is mild medial compartment joint space narrowi ng and spurring. There is no fracture, dislocation or subluxation. There is trace joint fluid without a significant effusion. IMPRESSION: Mild medial compartment predominant osteoarthritis of the left knee. Electronically signed by: Lucy Orona MD (05/07/2020 1:31 PM) [id number]
--- NOTE | 2020-05-07 13:35 | RAD ---
EXAM: Lumbar spine, 5 views. HISTORY: Pain. COMPARISON: None. FINDINGS: 5 views of the lumbar spine are obtained. There is minimal lumbar dextrocurvature centered at L3. There is mild lumbar hyperlordosis. There is minimal grade 1 anterolisthesis of L4 on L5, jayant uring 3 mm. There is degenerative endplate remodeling with disc space narrowing and vacuum phenomenon at L5-S1. There is facet arthropathy predominantly at the lower lumbar levels. There is degenerative subchondral sclerosis and vacuum phenomenon involving the sacroiliac joints. There are incidental ch olecystectomy clips. IMPRESSION: 1. Degenerative change primarily at L5-S1. 2. Grade 1 anterolisthesis of L4 on L5. Electronically signed by: Lucy Orona MD (05/07/2020 1:32 PM) [id number]
== END ==
LOC: PMG 12:57
PROVIDERS: ATTEND Physician Assistant Medical
DX: M17.12 Unilateral primary osteoarthritis, left knee (principal); M47.26 Other spondylosis with radiculopathy, lumbar region; M47.818 Spondylosis without myelopathy or radiculopathy, sacral and sacrococcygeal region
CPT/HCPCS: 72110; 73562

== ENCOUNTER 2020-09-08 22:25 | Emergency (ER) | payer MEDICAID ==
[~2020-09-08] VITALS: Ht 157.5 cm; Wt 97.1 kg
--- NOTE | 2020-09-08 23:13 | PHYS DOC ---
Past History Past Medical History: Arthritis, Diverticulitis Past Surgical History: Cholecystectomy, Hysterectomy, Other Additional Past Surgical Histo: bilat knee surgeries, bunionectomy, multiple hernia repairs. Alcohol Use: None General Adult EDM: Chief Complaint: ABDOMINAL PAIN HPI: HPI: "... It feels like my diverticulitis.. it been going on for a while... it just gotten worse he last couple days.. Patient is a 49 year old female who presents with above hx and complaints of Lt. lower quadrant pain x 2 day.s Pt. has hx of diverticulitis. Recent attempt at a colonoscopy was unsuccessful because scope could not be passed. Patient has been told she probably needs surgical removal of chronic areas of diverticulitis. Patient does report that stools recently have been somewhat pencil diameter. Patient has complained of some generalized constipation recently. Patient has complaints of some subjective fever and chills. Has had some epigastric discomfort. Patient advising she cannot be admitted tonight because her children are 4 and 7 she has no one to watch them. Patient recently moved here from [place] approximately 1 year ago. Patient denies any history immunosuppression. Denies any recent travel. Patient denies any changes in home meds. Patient normally follows with Laura for care. Review of Systems: Review of Systems: Constitutional: Denies fever or chills Eyes: Denies change in visual acuity HENT: Denies nasal congestion or sore throat Respiratory: Denies cough or shortness of breath Cardiovascular: Denies chest pain or edema GI: Complains of generalized abdominal pain, nausea,. Denies vomiting, bloody stools or diarrhea. Complains of constipation. : Denies dysuria Musculoskeletal: Denies back pain or joint pain Integument: Denies rash Neurologic: Denies headache, focal weakness or sensory changes Endocrine: Denies polyuria or polydipsia Lymphatic: Denies swollen glands Psychiatric: Denies depression or anxiety Family History: Family History: Noncontributory to presentation Current Medications: Current Meds: See nursing for home meds Allergies: Allergies: Allergies Coded Allergies Type Severity Reaction Last Updated Verified No Known Drug Allergies 09/08/20 No Physical Exam: PE: Constitutional: Moderate acute distress, non-toxic appearance. [] HENT: Normocephalic, atraumatic, bilateral external ears normal, oropharynx moist, no oral exudates, nose normal. [] Eyes: PERRLA, EOMI, conjunctiva normal, no discharge. [] Neck: Normal range of motion, no tenderness, supple, no stridor. [] Cardiovascular:Heart rate regular rhythm, no murmur [] Lungs & Thorax: Bilateral breath sounds to apex on auscultation [] Abdomen: Bowel sounds hyperactive,, soft, generalized tenderness, no masses, no pulsatile masses. Rebound to left lower quadrant. Skin: Warm, dry, no erythema, no rash. [] Back: No tenderness, no CVA tenderness. [] Extremities: No tenderness, no cyanosis, no clubbing, ROM intact, no edema. Mild psoas on the left Neurologic: Alert and oriented X 3, normal motor function, normal sensory function, no focal deficits noted. [] Psychologic: Affect anxious, judgement normal, mood normal. [] EKG: EKG: [] Radiology/Procedures: Radiology/Procedures: [][place] [address] IMAGING REPORT Signed PATIENT: CAROLIN FARFAN ACCOUNT: [id number] : 1970 LOCATION: ER AGE: 49 SEX: F EXAM STATUS: REG ER ORD. PHYSICIAN: DEEPIKA LIU MD REASON: pain Lt. hx of diverticultiis, OMNI 300, 75ml & OMNI 240, 30ml PROCEDURE: CT ABD PELV W/ORAL&IV CONTRAST INDICATION: Reason: pain Lt. hx of diverticultiis, OMNI 300, 75ml OMNI 240, 30ml / Spl. Instructions: / History: . COMPARISON: January 23, 2020 TECHNIQUE: Axial CT images obtained through the abdomen and pelvis with contrast. One or more of the following individualized dose reduction techniques were utilized for this examination: 1. Automated exposure control; 2. Adjustment of the mA and/or kV according to patient size; 3. Use of iterative reconstruction technique. FINDINGS: Abdominal aorta is not aneurysmal. Liver is low density which can be seen with fatty infiltration. Postcholecystectomy. No peripancreatic fluid collection. Suspected small diverticulum at duodenum. Spleen unremarkable. Urinary bladder is partially distended with some thickening of the left lateral wall. Mild prominence of the right renal pelvis without radiopaque obstructive ureter stone. Wall thickening of the sigmoid colon with adjacent edema to the fat and small adjacent fluid in a similar location compared to prior exam. Anterior abdominal wall hernia sac is seen with multiple loops of bowel within without evidence of obstruction. No periappendiceal inflammatory changes. Degenerative changes the spine. IMPRESSION: * Severe wall thickening of the sigmoid colon and distal descending colon with adjacent edema to the fat. There is also some adjacent extraluminal air and fluid which could be secondary to localized perforation adjacent to the colon with phlegmon in region. One of these tracts extends towards the left side of the urinary bladder with some wall thickening of the left side of the urinary bladder which may be secondarily inflamed by this process with fistulous tract possible. Follow-up could be obtained to ensure this appropriately resolves to exclude a colonic mass contributing to this appearance given the persistence. Report called to the ER at 2:10 AM on date of exam * Liver is low density which can be seen with fatty infiltration Electronically signed by: Conner Kimball MD (09/09/2020 2:12 AM) [id number] DICTATED AND SIGNED BY: CONNER KIMBALL MD DATE: 09/09/20 020 CC: DEEPIKA LIU MD; ROBL[facility] ~[facility] [address] [place] [address] IMAGING REPORT Signed PATIENT: CAROLIN FARFAN ACCOUNT: [id number] : 1970 LOCATION: ER AGE: 49 SEX: F EXAM STATUS: REG ER ORD. PHYSICIAN: DEEPIKA LIU MD REASON: severe lt. lower abd. pain - hx diverticulitis PROCEDURE: ACUTE ABDOMEN SERIES INDICATION: Reason: severe lt. lower abd. pain - hx diverticulitis / Spl. Instructions: / History: COMPARISON: CT from January 2020 IMPRESSION: 3 views of the chest and abdomen obtained. Degenerative changes the spine. Cardiac silhouette unremarkable. No focal airspace consolidation to suggest pneumonia. Cholecystectomy clips. Moderate stool in the colon with air scattered throughout the large and small bowel in a nonspecific but not grossly obstructive pattern. Electronically signed by: Conner Kimball MD (09/09/2020 12:58 AM) DESKTOP- [id number] DICTATED AND SIGNED BY: CONNER KIMBALL MD DATE: 09/09/2056 CC: DEEPIKA LIU MD; ROBLES MAC ~[facility] 0 Heart Score: C/O Chest Pain: N/A HEART Score for Chest Pain: HEART Score for Chest Pain Response (Comments) Value History Slighlty/Non-Suspicious 0 ECG Normal 0 Age >45 - < 65 1 Troponin < Normal Limit 0 Total 1 Risk Factors: Risk Factors: DM, Current or recent (<one month) smoker, HTN, HLP, family history of CAD, obesity. Risk Scores: Score 0 - 3: 2.5% MACE over next 6 weeks - Discharge Home Score 4 - 6: 20.3% MACE over next 6 weeks - Admit for Clinical Observation Score 7 - 10: 72.7% MACE over next 6 weeks - Early Invasive Strategies Course & Med Decision Making: Course & Med Decision Making Pertinent Labs and Imaging studies reviewed. (See chart for details) Patient stay on a clear fluid diet only for the next 2 days. No solids no milk products. Encourage patient to return if she has any problems. Strongly recommended patient be admitted for surgical consult on her markedly abnormal CT findings. Suspect may be due to chronic diverticulitis however with persistence of left lower quadrant problems may have mass causing the left lower quadrant pain. Patient currently refusing admission. Will start on Cipro 500 mg twice a day. Flagyl 500 mg 3 times a day. Push fluids. Stay on a clear fluid diet for the next couple days. Attempt to find someone to help with babysitting her children during admission. Patient does states she has a daughter coming to into town on Thursday and she will be able to take care of her children at that time but at this time refuses admission under any circumst ances. \\ Impression: 1. Abdomen pain 2. Diverticulitis 3.. Possible UTI however suspect this is secondary to the inflammation in her pelvic area and sigmoid 4. Constipation 5. Possible colonic mass [] Dragon Disclaimer: Dragon Disclaimer: This electronic medical record was generated, in whole or in part, using a voice recognition dictation system. Departure Departure: Referrals: ROBLES MAC (PCP) Scripts Ciprofloxacin (CIPRO) 500 Mg/5 Ml [facility]..rec 500 MG PO BID for diverticultis for 10 Days, MISC Prov: DEEPIKA LIU MD 09/09/20 Metronidazole (FLAGYL) 500 Mg Tablet 500 MG PO TID for diverticular abscess for 10 Days, #30 TAB Prov: DEEPIKA LIU MD 09/09/20 Dragon Disclaimer This chart was dictated in whole or in part using Voice Recognition software in a busy, high-work load, and often noisy Emergency Department environment. It may contain unintended and wholly unrecognized errors or omissions. DEEPIKA LIU MD Sep 08, 2020 23:13
[2020-09-08] MEDS ORDERED: KETOROLAC 30 MG/ML VIAL. IVP ONE (23:15)
[2020-09-08] MEDS ORDERED: ONDANSETRON PF 4 MG/2 ML VIAL. IVP ONE (23:15)
[2020-09-08] MEDS ORDERED: FAMOTIDINE 20 MG/2 ML VIAL IVP ONE (23:15)
[2020-09-08] MEDS ORDERED: CIPROFLOXACIN HCL 500 MG TABLET PO ONE (23:15)
[2020-09-08] MEDS ORDERED: MORPHINE SULFATE 10 MG/ML SYRINGE. SQ ONE (23:15)
[2020-09-08] MEDS ORDERED: IV RINGERS SOLUTION,LACTATED 1,000 ML IV SCH (23:15)
--- NOTE | 2020-09-08 23:44 | EKG ---
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
[2020-09-08] MEDS ORDERED: CONTRAST GIVEN. MC PRN (23:45)
[2020-09-08] MEDS ORDERED: IOHEXOL 240 MG/ML 50ML VIAL. PO ONE (23:45)
[2020-09-08] MEDS ORDERED: IOHEXOL 300 MG/ML 75 ML VIAL. IV ONE (23:45)
[2020-09-09 00:06] LABS: HEMOGLOBIN ISTAT 12.2 gm/dL; POTASSIUM ISTAT 3.9 mmol/L (3.5-5.0)
[2020-09-09 00:24] LABS: BASO % 1 % (0-3); EOS # 0.2 x10^3/uL (0.0-0.7); EOS % 3 % (0-3); HEMATOCRIT 37.2 % (36.0-47.0); HEMOGLOBIN 12.6 g/dL (12.0-15.5); LYMPH # 2.8 x10^3/uL (1.0-4.8); LYMPH % 31 % (24-48); MEAN CORPUSCULAR HEMOGLOBIN 28 pg (25-35); MEAN CORPUSCULAR HGB CONC 34 g/dL (31-37); MEAN CORPUSCULAR VOLUME 83 fL (79-100); MONO # 0.6 x10^3/uL (0.0-1.1); MONO % 7 % (0-9); NEUT # 5.3 x10^3uL (1.8-7.7); NEUT % 59 % (31-73); PLATELET COUNT 305 x10^3/uL (140-400); RED BLOOD COUNT 4.46 x10^6/uL (3.50-5.40); RED CELL DISTRIBUTION WIDTH 13.8 % (11.5-14.5)
[2020-09-09 00:27] LABS: BILIRUBIN,URINE NEG (NEG); CLARITY,URINE HAZY; COLOR,URINE YELLOW; GLUCOSE,URINE NEG (NEG)
[2020-09-09 00:28] LABS: NITRITE,URINE NEG (NEG); RBC,URINE >40 /HPF (0-2)
[2020-09-09 00:29] LABS: AMMONIUM BIURATE PRESENT /HPF; BACTERIA,URINE MANY /HPF (0-FEW); SQUAMOUS EPITHELIAL CELL,UR MOD /LPF; WBC,URINE >40 /HPF (0-4)
[2020-09-09 00:29] LABS: ALBUMIN 3.7 g/dL (3.4-5.0); ALK PHOS 123 U/L (46-116); ALT (SGPT) 14 U/L (14-59); AMYLASE 58 U/L (25-115); AST (SGOT) 29 U/L (15-37); LIPASE 117 U/L (73-393); TOTAL BILIRUBIN 0.4 mg/dL (0.2-1.0); TOTAL PROTEIN 7.4 g/dL (6.4-8.2)
[2020-09-09 00:32] LABS: DIRECT BILIRUBIN < 0.1 mg/dL (0.0-0.2)
--- NOTE | 2020-09-09 01:01 | RAD ---
INDICATION: Reason: severe lt. lower abd. pain - hx diverticulitis / Spl. Instructions: / History: COMPARISON: CT from January 2020 IMPRESSION: 3 views of the chest and abdomen obtained. Degenerative changes the spine. Cardiac silhouette unremarkable. No focal airspace consolidation to suggest pneumonia. Cholecystectomy clips. Moderate stool in the colon with air scattered throughout the large and small bowel in a nonspecific but not grossly obstructive pattern. Electronically signed by: Emmanuel Brunson MD (09/09/2020 12:58 AM) [id number]
[2020-09-09] MEDS ORDERED: MAGNESIUM HYDROXIDE 2,400 MG/30 ML ORAL.SUSP. PO ONE (02:00)
--- NOTE | 2020-09-09 02:15 | RAD ---
INDICATION: Reason: pain Lt. hx of diverticultiis, OMNI 300, 75ml OMNI 240, 30ml / Spl. Instructio ns: / History: . COMPARISON: January 23, 2020 TECHNIQUE: Axial CT images obtained through the abdomen and pelvis with contrast. One or more of the following individualized dose reduction techniques were utilized for this examinat ion: 1. Automated exposure control; 2. Adjustment of the mA and/or kV according to patient size; 3 . Use of iterative reconstruction technique. FINDINGS: Abdominal aorta is not aneurysmal. Liver is low density which can be seen with fatty infiltration. Postcholecystectomy. No peripancreatic fluid collection. Suspected small diverticulum at duodenum. Spleen unremarkable. Urinary bladder is partially distended with some thickening of the left lateral wall. Mild prominence of the right renal pelvis without radiopaque obstructive ureter stone. Wall thickening of the sigmoid colon with adjacent edema to the fat and small adjacent fluid in a sim ilar location compared to prior exam. Anterior abdominal wall hernia sac is seen with multiple loops of bowel within without evidence of obstruction. No periappendiceal inflammatory changes. Degenerative changes the spine. IMPRESSION: * Severe wall thickening of the sigmoid colon and distal descending colon with adjacent edema to the fat. There is also some adjacent extraluminal air and fluid which could be secondary to localized pe rforation adjacent to the colon with phlegmon in region. One of these tracts extends towards the left side of the urinary bladder with some wall thickening of the left side of the urinary bladder which may be secondarily inflamed by this process with fistulous tract possible. Follow-up could be obtaine d to ensure this appropriately resolves to exclude a colonic mass contributing to this appearance giv en the persistence. Report called to the ER at 2:10 AM on date of exam * Liver is low density which can be seen with fatty infiltration Electronically signed by: Emmanuel Brunson MD (09/09/2020 2:12 AM) [id number]
[2020-09-09] MEDS ORDERED: METR500T PO (02:34)
[2020-09-09] MEDS ORDERED: CIPR500S2 PO (02:34)
[2020-09-09 02:45] VITALS: BP 153/93
== END 2020-09-09 02:50 | disposition left against medical advice (07) ==
LOC: ER 22:25
DX: K57.92 Diverticulitis of intestine, part unspecified, without perforation or abscess without bleeding (principal); K59.00 Constipation, unspecified; Z90.49 Acquired absence of other specified parts of digestive tract; Z90.710 Acquired absence of both cervix and uterus
CPT/HCPCS: 36415; 74022; 74177; 80047; 80076; 81001; 82150; 82550; 83690; 84484; 85025; 87086; 93005; 96365; 96375; 99285; J1885; J2405; J3490; J7120; Q9966; Q9967